=== PATIENT | male | born 1965 | race Two or more races ===

== ENCOUNTER 2017-07-05 07:56 | Emergency (ER) | payer OTHER ==
[~2017-07-05] VITALS: Ht 177.8 cm; Wt 108.9 kg
[~2017-07-05 07:56] MED LIST: ANTIVERT25 M1 PO; CLARITIN10 M2; METFORMIN HCL1000 MG PO; METFORMIN HCL500 M2
== END 2017-07-05 14:24 | disposition home or self-care (01) ==
LOC: ER 07:56
DX: K29.60 Other gastritis without bleeding (principal)

== ENCOUNTER 2020-09-05 12:19 | Emergency (ER) | payer OTHER ==
[~2020-09-05] VITALS: Ht 177.8 cm; Wt 106.6 kg
== END 2020-09-05 14:31 | disposition home or self-care (01) ==
LOC: ER 12:19
DX: S16.1XXA Strain of muscle, fascia and tendon at neck level, initial encounter (principal); M54.5 Low back pain; V49.88XA Car occupant (driver) (passenger) injured in other specified transport accidents, initial encounter; W22.11XA Striking against or struck by driver side automobile airbag, initial encounter; Y92.488 Other paved roadways as the place of occurrence of the external cause; Y93.89 Activity, other specified; Y99.8 Other external cause status